=== PATIENT | male | born 1960 | race Caucasian/White ===

== ENCOUNTER 2017-11-30 12:58 | Day surgery (SDC) | payer OTHER ==
[2017-11-30] MEDS ORDERED: DIPHENHYDRAMINE 50 MG INJ (14:39)
[2017-11-30] MEDS ORDERED: MIDAZOLAM 1 MG/ML 2 ML INJ ×4 (15:34)
[2017-11-30] MEDS ORDERED: FENTAnyl 50 MCG/ML VIAL ×2 (15:34)
== END 2017-11-30 17:04 | disposition home or self-care (01) ==
LOC: GIL 12:58
DX: K21.0 Gastro-esophageal reflux disease with esophagitis (principal); K44.9 Diaphragmatic hernia without obstruction or gangrene; D50.9 Iron deficiency anemia, unspecified; D12.0 Benign neoplasm of cecum; I10 Essential (primary) hypertension; E11.9 Type 2 diabetes mellitus without complications
CPT/HCPCS: 43239; 82962; 88305; 88312; 88313